=== PATIENT | male | born 1990 | race Caucasian/White ===

== ENCOUNTER 2019-12-11 22:42 | Emergency (ER) | payer SELFPAY ==
[~2019-12-11] VITALS: Ht 188 cm; Wt 77.1 kg
--- NOTE | 2019-12-11 22:55 | NUR ---
Patient to ER bed 8 to gown for evaluation. Side rails up. Report given to MILA WALLACE.
[2019-12-11] MEDS ORDERED: ONDANSETRON HCL 4 MG/2 ML VIAL IVP ONE (23:00)
[2019-12-11] MEDS ORDERED: NACL 0.9% 1,000 ML IV ONE (23:00)
[2019-12-11] MEDS ORDERED: FAMOTIDINE PF 20 MG/2 ML VIAL IVP ONE (23:00)
[2019-12-11] MEDS ORDERED: HALOPERIDOL LACTATE 5 MG/ML VIAL IVP ONE (23:00)
[2019-12-11 23:03] VITALS: BP_SYST 135
--- NOTE | 2019-12-11 23:03 | NUR ---
ER Dr. KERR at bedside examining patient.
--- NOTE | 2019-12-11 23:06 | NUR ---
PT A&OX4 FROM HOME C/O OF NAUSEA/VOMITING STARTING LAST NIGHT AT 10PM. PT REPORTS HAVING MANY EPISODES OF VOMITING SINCE LAST NIGHT. PT UNABLE TO KEEP FOOD OR FLUIDS DOWN. PT DENIES ABDOMINAL PAIN, SOB, COUGH, FEVER. PT STATES HE SMOKES WEEK AND SMOKED BEFORE HIS SYMPTOMS STARTED LAST NIGHT AND SMOKED AGAIN TODAY AT 2PM. PT DENIES TAKING ANY MEDS TODAY. PT REPORTS HAVING FACIAL AND BILATERAL ARM NUMBNESS/TINGLING EARLIER TODAY. NO OTHER MEDICAL COMPLAINTS AT THIS TIME. NO PMH
--- NOTE | 2019-12-11 23:25 | NUR ---
PT REFUSED LAB WORK.
[2019-12-12] MEDS ORDERED: HALOPERIDOL LACTATE 5 MG/ML VIAL ONE (00:18)
--- NOTE | 2019-12-12 00:55 | NUR ---
pre haldol strip recorded, printed and placed in chart.
--- NOTE | 2019-12-12 01:10 | NUR ---
POST HALDOL STRIP RECORDED AND PRINTED AND PLACED IN CHART.
[2019-12-12 01:12] VITALS: BP_SYST 118
--- NOTE | 2019-12-12 01:12 | NUR ---
Patient given written and verbal discharge instructions and verbalizes understanding. ER MD discussed with patient the results and treatment provided. Patient in stable condition. ID arm band removed. IV catheter removed intact and dressing applied, no active bleeding. Rx OF ZOFRAN, PEPCIS given. Patient educated on pain management and to follow up with PMD. Pain Scale 0/10. Opportunity for questions provided and answered. Medication side effect fact sheet provided.
== END 2019-12-12 01:12 | disposition home or self-care (01) ==
LOC: SED 22:42
DX: F12.188 Cannabis abuse with other cannabis-induced disorder (principal); K21.9 Gastro-esophageal reflux disease without esophagitis; R11.10 Vomiting, unspecified
CPT/HCPCS: 96361; 96374; 96375; 99284; J2405; J3490; J7030; J1630